=== PATIENT | female | born 1975 | race Caucasian/White ===

== ENCOUNTER 2016-04-26 22:00 | Emergency (ER) | payer OTHER ==
[~2016-04-26] VITALS: Ht 157.5 cm; Wt 86.2 kg
[2016-04-26 22:05] VITALS: BP 133/90
--- NOTE | 2016-04-26 22:11 | NUR ---
AMBULATED TO ER BED 4
--- NOTE | 2016-04-26 22:14 | NUR ---
PT STATING UNABLE TO GIVE URINE AT THIS TIME
--- NOTE | 2016-04-26 22:26 | NUR ---
PATIENT PRESENTS TO ED WITH GENERALIZED BODY WEAKNESS THAT STARTED TODAY . PT STATES SHE IS ALSO HAVING RUQ ABD ILDA . DENIES N/V/D; SKIN IS PINK/WARM/DRY; AAOX4 WITH EVEN AND STEADY GAIT; LUNGS CLEAR BL; HR EVEN AND REGULAR; PT DENIES ANY FEVER, CP, SOB, OR COUGH AT THIS TIME; PATIENT STATES PAIN OF 5/10 AT THIS TIME; VSS; PATIENT POSITIONED FOR COMFORT; HOB ELEVATED; BEDRAILS UP X2; BED DOWN. ER MD MADE AWARE OF PT STATUS. FRIEND AT BEDSIDE
[2016-04-26] MEDS ORDERED: NACL 0.9% 1,000 ML IV SCH (22:34)
[2016-04-26] MEDS ORDERED: ONDANSETRON 4 MG/2 ML VIAL IVP ONE (22:35)
[2016-04-26] MEDS ORDERED: KETOROLAC 30 MG/ML VIAL IVP ONE (22:35)
--- NOTE | 2016-04-26 23:04 | NUR ---
PT TO CT
--- NOTE | 2016-04-26 23:48 | NUR ---
PT USING RESTROOM. STATED SHE FEELS A LOT BETTER. EXPLAINED DX TO PT. FAMILY AT BEDSIDE
[2016-04-27] VITALS: BP 106/72
--- NOTE | 2016-04-27 | NUR ---
Patient discharged with v/s stable. Written and verbal after care instructions given and explained. Patient alert, oriented and verbalized understanding of instructions. Ambulatory with steady gait. All questions addressed prior to discharge. ID band removed. Patient advised to follow up with PMD. Rx of ZOFRAN AND MOTRIN given. Patient educated on indication of medication including possible reaction and side effects. Opportunity to ask questions provided and answered. IV removed, catheter intact and site benign. Applied folded 4x4 gauze and tape to stop bleeding.
== END 2016-04-27 | disposition home or self-care (01) ==
LOC: MED 22:00
DX: R10.13 Epigastric pain (principal); R11.0 Nausea; R53.1 Weakness
CPT/HCPCS: 36415; 74176; 80053; 81001; 81025; 83690; 85025; 96361; 96374; 96375; 99285; J1885; J2405; J7030

== ENCOUNTER 2016-06-07 00:06 | Emergency (ER) | payer OTHER ==
[~2016-06-07] VITALS: Ht 154.9 cm; Wt 82.6 kg
[2016-06-07 00:13] VITALS: BP 122/85
--- NOTE | 2016-06-07 02:35 | NUR ---
PATIENT LEFT WITHOUT BEING SEEN BY DR. LAWRENCE. NO FURTHER CARE PROVIDED FOR PATIENT.
== END 2016-06-07 02:35 | disposition left against medical advice (07) ==
LOC: MED 00:06
DX: R06.02 Shortness of breath (principal); R05 Cough; Z53.21 Procedure and treatment not carried out due to patient leaving prior to being seen by health care provider